=== PATIENT | female | born 1960 | race Caucasian/White ===

== ENCOUNTER 2019-01-09 12:08 | Emergency (ER) | payer OTHER ==
[~2019-01-09] VITALS: Ht 175.3 cm; Wt 94.3 kg
[2019-01-09 12:28] VITALS: BP 150/90
== END 2019-01-09 12:30 | disposition home or self-care (01) ==
LOC: ER 12:08
DX: M54.2 Cervicalgia (principal); V43.52XA Car driver injured in collision with other type car in traffic accident, initial encounter; Y92.488 Other paved roadways as the place of occurrence of the external cause
CPT/HCPCS: 99282

== ENCOUNTER → 2019-11-11 | Day surgery (SDC) | payer OTHER ==
[~2019-11-11] MED LIST: ACETAMINOPHEN-1 EAC4 PO; ALBUTEROL0.63 MG/3 INH; ARMOUR THYROID60 MG PO; B&O 60MG R/S 60 MG SUPP PR ONE; CIPRO500 MG PO; CITRACAL + D31 EACH PO; DEXAMETHASONE SOD PHOS INJ 4 MG/ML VIAL ONE; ETODOLAC500 MG PO; FENTANYL CITRATE/PF 100MCG/2 ML INJ ONE; FLOMAX0.4 MG PO; GLUCOSAMINE CH1 EAC2 PO; IOPAMIDOL 300MG/ML 50ML INFUS..BTL IV ONE; LEVOFLOXACIN 500MG/D5W 100ML 100 ML IV ONE; LIDOCAINE HCL 2% LOCAL INJ 5 ML SDV VIAL INJ ONE; MIDAZOLAM HCL 2 MG/2 ML VIAL ONE; OMEGA-31000 MG PO; ONDANSETRON HCL INJ 2MG/ML 2ML 2 MG/ML VIAL ONE; PROPOFOL IV EMULSION 10 MG/ML 20 ML VIAL ONE; ROBAXIN-750750 MG PO; SEVOFLURANE INHAL SOLN 250 ML PEN BTL ONE; URIBEL CAPSULE1 EACH PO; VITAMIN D32000 UNI2 PO; XOPENEX CO1.25 MG/0. INH; XYZAL5 MG PO
[2019-11-11 15:00] VITALS: BP 153/85
--- NOTE | 2019-12-24 02:46 | Operative Report ---
DATE OF PROCEDURE: 11/11/2019 SURGEON: Braulio Baker MD PREOPERATIVE DIAGNOSIS: Urinary tract infections. POSTOPERATIVE DIAGNOSES: 1. Urinary tract infections. 2. Grade 2 cystocele. 3. Atrophic (senile) vaginitis. OPERATION PERFORMED: 1. Cystourethroscopy with bilateral ureteral catheterization and retrograde ureteropyelography. 2. Interpretation of retrograde ureteropyelography. 3. Supervision of fluoroscopy, no radiologist present. 4. Pelvic examination under anesthesia. ANESTHESIA: General. COMPLICATIONS: None. CLINICAL SUMMARY: Lissette Berry is a 59-year-old woman, who underwent previous mid urethral sling. She has had lower tract symptomatology and urine tract infection, she is brought for evaluation. She is aware of the risks of bleeding, infection, injury to adjacent structures, need for additional procedures, and elected to proceed. OPERATIVE PROCEDURE IN DETAIL: Informed consent was verified, Lissette Berry was properly identified, taken to the operating room, placed on the cystoscopy table in supine position. Anesthesia was uneventfully begun. The patient was then carefully gently repositioned in the dorsal lithotomy position with all pressure points well padded. Her genitalia were prepared and draped in the usual sterile fashion. The 22.5-Lithuanian cystoscope sheath with obturator in place was atraumatically inserted the patient's urethra and the bladder was drained. Panendoscopy of the bladder revealed no suspicious mucosal lesions. There was mild erythema along the posterior wall. Normally positioned, configured ureteral orifices were identified. There were grade 1-2 trabeculations. The bladder neck appeared to be elevated and mid urethra seems to be compressed extrinsically. An 8-Lithuanian catheter was used to cannulate each ureter and retrograde ureteropyelography was performed. Interpretation of retrograde ureteropyelography contrast was instilled in retrograde fashion bilaterally. There were no tumors, no stones, and no diverticula. Unobstructed drainage was observed bilaterally fluoroscopically. Cholecystectomy clips were noted. The patient's bladder was drained, cystoscope was withdrawn. Pelvic examination under anesthesia revealed no erosion of the mid urethral sling. There was obviously 2 type appears to be a kink due to the grade 2 cystocele causing kink at the pubovaginal sling area, which most likely contributes to the patient's obstruction. There were no obvious mucosal lesions. No abnormal palpable pelvic masses could be appreciated. The patient was then uneventfully reversed from anesthesia and taken to recovery room in stable condition. There were no complications to the procedure. She tolerated the procedure well. Plans will be to return the patient to the operating room for an excision of her sling and cystocele repair with graft and creation of a new non-constricting sling. Braulio Baker MD OH/MODL /[id number] cc: Steffen Guallpa MD
== END | disposition home or self-care (01) ==
LOC: OR 11:36
PROVIDERS: ATTEND Urology
DX: N39.0 Urinary tract infection, site not specified (principal); N81.10 Cystocele, unspecified; N95.2 Postmenopausal atrophic vaginitis; Z88.1 Allergy status to other antibiotic agents; Z88.0 Allergy status to penicillin; Z88.8 Allergy status to other drugs, medicaments and biological substances; J45.909 Unspecified asthma, uncomplicated; F41.9 Anxiety disorder, unspecified; E03.9 Hypothyroidism, unspecified; Z01.810 Encounter for preprocedural cardiovascular examination
CPT/HCPCS: 52005; 74420; 93005; C1758; J1100; J1956; J2001; J2250; J2405; J2704; J3010; Q9967

== ENCOUNTER 2019-11-17 13:00 | Inpatient (IN) | payer OTHER ==
[~2019-11-17] VITALS: Ht 175.3 cm; Wt 92.7 kg
[~2019-11-17 13:00] MED LIST changes: +ACETAMINOPHEN 1000 MG/100 ML IV ONE; -B&O 60MG R/S 60 MG SUPP PR ONE; +EPHEDRINE SULFATE INJ 50 MG/ML VIAL ONE; -FENTANYL CITRATE/PF 100MCG/2 ML INJ ONE; -IOPAMIDOL 300MG/ML 50ML INFUS..BTL IV ONE; -LEVOFLOXACIN 500MG/D5W 100ML 100 ML IV ONE; +METOCLOPRAMIDE HCL 10 MG/2ML VIAL ONE; -MIDAZOLAM HCL 2 MG/2 ML VIAL ONE
[2019-11-17] MEDS ORDERED: CLINDAMYCIN 600MG / 50ML 50 ML IV ONE (13:29)
[2019-11-17] MEDS ORDERED: MEROPENEM 1GM 100 ML IV ONE (13:30)
[2019-11-17] MEDS ORDERED: MIDAZOLAM HCL 2 MG/2 ML VIAL ONE (14:45)
[2019-11-17] MEDS ORDERED: FENTANYL CITRATE/PF 100MCG/2 ML INJ ONE (14:45)
[2019-11-17] MEDS ORDERED: IOPAMIDOL 300MG/ML 50ML INFUS..BTL IV ONE (17:03)
[2019-11-17] MEDS ORDERED: BUPIVACAINE 0.5%/EPI 30 ML SDV INJ ONE (17:03)
[2019-11-17] MEDS ORDERED: MUPIROCIN 2% OINT 22 GM TUBE ONE (17:04)
[2019-11-17] MEDS ORDERED: BACITRACIN 50,000 UNIT VIAL ONE (17:14)
[2019-11-17] MEDS ORDERED: DIPHENHYDRAMINE HCL 25 MG CAP PO PRN (17:15)
[2019-11-17] MEDS ORDERED: NALOXONE HCL INJ 0.4 MG/ML AMP IV PRN (17:15)
[2019-11-17] MEDS ORDERED: ACETAMINOPHEN 1000 MG/100 ML 100 ML IV ONE (18:06)
[2019-11-17] MEDS: MORPHINE SULFATE 1 MG/ML 30ML PCA IV PRN (18:50)
[2019-11-17] MEDS ORDERED: HYDROMORPHONE 1MG/1ML INJ ONE ×2 (19:01→19:08)
[2019-11-17 19:35] VITALS: BP 127/70
[2019-11-17] MEDS: MEROPENEM 1GM 100 ML IV SCH (20:21)
[2019-11-17] MEDS: ONDANSETRON HCL INJ 2MG/ML 2ML 2 MG/ML VIAL IV PRN (20:40)
[2019-11-17 20:44] VITALS: BP 127/70
[2019-11-17] MEDS ORDERED: MEROPENEM 1GRAM 1 GM in SODIUM CHLORIDE 0.9% 100 ML 100 ML IV SCH (21:00)
[2019-11-17] MEDS: D5.45%NS/KCL 20MEQ 1,000 ML IV SCH (21:54)
[2019-11-18] VITALS (7 sets, daily range): BP systolic 100–121; BP diastolic 50–86
[2019-11-18] MEDS: MORPHINE SULFATE 1 MG/ML 30ML PCA IV PRN (00:13)
[2019-11-18] MEDS: D5.45%NS/KCL 20MEQ 1,000 ML IV SCH ×3 (01:02→16:21)
[2019-11-18] MEDS: PROMETHAZINE 12.5MG/ NACL 0.9% 12.5 MG/50 ML BAG IV PRN ×2 (01:12→05:36)
[2019-11-18] MEDS: ONDANSETRON HCL INJ 2MG/ML 2ML 2 MG/ML VIAL IV PRN ×2 (04:34→16:20)
[2019-11-18] MEDS ORDERED: LORAZEPAM INJ 2 MG/ML VIAL IV PRN (05:00)
[2019-11-18 05:43] LABS: BASOPHILS % 0.2 % (0.0-1.0); HEMATOCRIT 37.4 % (34.2-44.1); HEMOGLOBIN 11.6 g/dL (12.0-16.0); LYMPHOCYTES # (AUTO) 0.9 (1.0-3.2); LYMPHOCYTES % 7.5 % (18.0-39.1); MEAN CORPUSCULAR HEMOGLOBIN 28.2 pg (28-32); MEAN CORPUSCULAR VOLUME 90.8 fL (81-99); MONOCYTES # (AUTO) 0.8 (0.2-0.8); MONOCYTES % 6.6 % (4.4-11.3); NEUTROPHILS # (AUTO) 10.6 (2.1-6.9); NEUTROPHILS % 85.1 % (38.7-80.0); PLATELET COUNT 225 x10e3/uL (140-360); RED BLOOD COUNT 4.12 x10e6/uL (3.6-5.1); RED CELL DISTRIBUTION WIDTH 13.2 % (11.7-14.4)
[2019-11-18 05:59] LABS: ANION GAP 12.7 mmol/L (8-16); BLOOD UREA NITROGEN 15 mg/dL (7-26); BUN/CREATININE RATIO 21 (6-25); CALCIUM 8.7 mg/dL (8.4-10.2); CARBON DIOXIDE 25 mmol/L (22-29); CHLORIDE 104 mmol/L (98-107); CREATININE, SERUM 0.71 mg/dL (0.57-1.11); EST GLOMERULAR FILTRATION RATE > 60 ML/MIN (60-); GLUCOSE 147 mg/dL (74-118); POTASSIUM 4.7 mmol/L (3.5-5.1); SODIUM 137 mmol/L (136-145)
[2019-11-18] MEDS ORDERED: PNEUMOCOCCAL VACCINE POLYVALENT 23 MCG/0.5 ML VIAL IM SCH (06:00)
[2019-11-18] MEDS: MEROPENEM 1GM 100 ML IV SCH ×2 (08:40→20:00)
[2019-11-18] MEDS: DOCUSATE SODIUM 100 MG CAP PO SCH ×2 (08:40→16:20)
[2019-11-18] MEDS: TRAMADOL HCL 50 MG TAB PO PRN ×4 (11:38→23:45)
[2019-11-18] MEDS: METHOCARBAMOL 500 MG TAB PO SCH (21:00)
[2019-11-18] MEDS ORDERED: THYROID 60 MG TAB PO SCH (21:00)
[2019-11-18] MEDS: XYZAL 5MG PO SCH (21:00)
[2019-11-18] MEDS ORDERED: METHOCARBAMOL 750 MG TAB PO SCH (21:00)
[2019-11-19] VITALS: BP 108/55
[2019-11-19] MEDS: D5.45%NS/KCL 20MEQ 1,000 ML IV SCH (03:28)
[2019-11-19] MEDS: TRAMADOL HCL 50 MG TAB PO PRN ×2 (03:45→08:58)
[2019-11-19 04:00] VITALS: BP 114/61
[2019-11-19 05:57] LABS: BASOPHILS % 0.3 % (0.0-1.0); EOSINOPHILS # (AUTO) 0.1 (0.0-0.4); EOSINOPHILS % 0.8 % (0.0-6.0); HEMATOCRIT 33.8 % (34.2-44.1); HEMOGLOBIN 10.9 g/dL (12.0-16.0); LYMPHOCYTES # (AUTO) 2.1 (1.0-3.2); LYMPHOCYTES % 28.5 % (18.0-39.1); MEAN CORPUSCULAR HEMOGLOBIN 28.5 pg (28-32); MEAN CORPUSCULAR HGB CONC 32.2 g/dL (31-35); MEAN CORPUSCULAR VOLUME 88.5 fL (81-99); MONOCYTES # (AUTO) 0.6 (0.2-0.8); MONOCYTES % 7.5 % (4.4-11.3); NEUTROPHILS # (AUTO) 4.7 (2.1-6.9); NEUTROPHILS % 62.6 % (38.7-80.0); PLATELET COUNT 199 x10e3/uL (140-360); RED BLOOD COUNT 3.82 x10e6/uL (3.6-5.1); RED CELL DISTRIBUTION WIDTH 13.4 % (11.7-14.4)
[2019-11-19 06:19] LABS: ANION GAP 11.1 mmol/L (8-16); BLOOD UREA NITROGEN 8 mg/dL (7-26); BUN/CREATININE RATIO 12 (6-25); CALCIUM 8.2 mg/dL (8.4-10.2); CARBON DIOXIDE 28 mmol/L (22-29); CHLORIDE 102 mmol/L (98-107); CREATININE, SERUM 0.69 mg/dL (0.57-1.11); EST GLOMERULAR FILTRATION RATE > 60 ML/MIN (60-); GLUCOSE 108 mg/dL (74-118); POTASSIUM 4.1 mmol/L (3.5-5.1); SODIUM 137 mmol/L (136-145)
--- NOTE | 2019-11-19 07:37 | Progress Note ---
DATE: 11/19/2019 SUBJECTIVE: The patient is a 59-year-old female, who came in and had a cystocele repair. The patient has been seen by Dr. Braulio Baker. No complaints noted today. The patient underwent surgery on 11/17/2019. Currently, no complaints. No chest pain or shortness of breath. The patient has arthritis pain, however, otherwise no complaints. PHYSICAL EXAMINATION: VITAL SIGNS: Temperature is 96.9, pulse of 61, respirations 17, blood pressure is 108/55, pulse oximetry of 96% on room air. HEENT: Normocephalic and atraumatic. Pupils are reactive to light and accommodation. CVS: S1 and S2 normal. Regular rate and rhythm. ABDOMEN: Nontender, nondistended. Bowel sounds are positive. EXTREMITIES: No clubbing, no cyanosis, no edema. HONORIO hose is in place. LABORATORY VALUES: From today white count is 7.43, hemoglobin of 10.9, hematocrit of 33.8. No left shift present. Chemistry shows sodium 137, potassium 4.1, BUN of 18, creatinine 0.69, calcium is 8.2. IMAGING STUDIES: Except for retrograde. ASSESSMENT: 1. Ms. Lissette Berry is status post cystocele, retrograde pyelogram. 2. History of hypothyroidism. 3. History of chronic low back pain and history of anxiety. PLAN: Continue current management. The patient can be discharged if okay with Dr. Baker. Further recommendation per clinical course. She is to continue all home medicines and follow up with Dr. Guallpa and Dr. Baker on a week's time. MD AL Chi/HIMAL /[id number]
[2019-11-19 08:00] VITALS: BP 114/61
[2019-11-19 08:10] VITALS: BP 110/53
[2019-11-19 08:43] VITALS: BP 110/53
[2019-11-19] MEDS: DOCUSATE SODIUM 100 MG CAP PO SCH (08:49)
[2019-11-19] MEDS: MEROPENEM 1GM 100 ML IV SCH (08:49)
[2019-11-19] MEDS: METHOCARBAMOL 500 MG TAB PO SCH (08:50)
[2019-11-19] MEDS: XYZAL 5MG PO SCH (08:50)
[2019-11-19 11:39] VITALS: BP 99/55
--- NOTE | 2019-11-28 09:10 | Discharge Summary ---
DISCHARGE DIAGNOSIS: Status post cystocele repair with Dr. Baker. HISTORY OF PRESENT ILLNESS AND HOSPITAL COURSE: See hospital chart for full details. The patient is a lady, who presented with abdominal pain, was found to have a large cystocele with Dr. Baker removed the old sling and repaired her cystocele. Postoperatively, she did well. She was able to be discontinued on the AERIAL LINEMAN and Cade. At the time of discharge, she was doing well. She is to follow up in [address] Baker and to call sooner with any issues. Please see hospital chart for full details. MD ALESSANDRA Mendez/JEANIE /[id number]
--- NOTE | 2019-12-30 03:25 | Operative Report ---
DATE OF PROCEDURE: 11/17/2019 SURGEON: Braulio Baker MD PREOPERATIVE DIAGNOSES: 1. Bladder neck obstruction. 2. Stress type urinary incontinence. 3. Grade 2 cystocele four. 4. Urinary tract infections. 5. Gross hematuria. POSTOPERATIVE DIAGNOSES: 1. Bladder neck obstruction. 2. Stress type urinary incontinence. 3. Grade 2 cystocele four. 4. Urinary tract infections. 5. Gross hematuria. OPERATIONS PERFORMED: 1. Excision of obstructing mid urethral sling (separate procedure performed for the diagnosis of sling). 2. Urethrolysis. 3. Repair of cystocele. 4. Utilization of graft and cystocele repair. 5. Pubovaginal sling utilizing homograft. 6. Cystourethroscopy with bilateral ureteral catheterization and retrograde ureteropyelography (separate procedure performed for the urinary tract infections and hematuria). 7. Interpretation of retrograde ureteropyelography. 8. Supervision of fluoroscopy, no radiologist present. ANESTHESIA: General. COMPLICATIONS: None. CLINICAL SUMMARY: Lissette Berry is a complicated 59-year-old woman who has had a previous mid urethral sling placed by another physician. This is causing obstruction. The patient desires excision and revision. She is aware of the risks of bleeding, infection, injury to adjacent structures, need for additional procedures, persistent incontinence, chronic pain in usual attendant risks of surgery and anesthesia, which she was encouraged to discuss with the anesthesiologist preoperatively. She understood all these risks and elected to proceed. OPERATIVE PROCEDURE IN DETAIL: Informed consent was verified. Lissette Berry was properly identified taken to the operative room and placed on the operating table in supine position. Anesthesia was uneventfully begun. The patient was then carefully gently repositioned in the dorsal lithotomy position with all pressure points well padded. Her abdomen, genitalia, and perineum were shaved, prepared, and draped in usual sterile fashion. Labial stay sutures were utilized as well as vaginal speculum. Marcaine with epinephrine was utilized to infiltrate submucosally in the midline and in the anterior vaginal wall. A midline incision was then made, bilateral vaginal wall flaps were carefully developed. We identified the pubovaginal sling. It appeared to have migrated distally and was not in good position in the mid urethra. The sling was somewhat adherent. The other aspect of the sling was that appeared to have rolled onto itself and instead of being any flat sling it was really rolled as a straw. We dissected it loose from the urethra, avoiding injuring the urethra. We then tracked it as laterally as possible and then divided it. All sling material could not be removed as it was buried laterally. Copious irrigation was performed. We then completed the anterior vaginal wall dissection created vaginal wall flaps that extended the entire cephalad extent of the anterior vaginal wall. We then pierced the endopelvic fascia as laterally as possible to avoid injuring the periurethral neurovascular complexes. Once this was accomplished heavy Vicryl suture was utilized in an interrupted fashion to perform plicating type of cystocele repair from the cephalad most extent of the anterior vaginal dissection to the bladder neck. This resulted in complete reduction of the cystocele. The patient's bladder was drained with a Cade catheter. We then took a piece of fascia manuel cut it to shape and placed a heavy PDS suture in a helical fashion through each end. We rehydrated this fascia manuel in antibiotic irrigant. We then utilized the [facility] needle system to hug the posterior surface of the left pubis and pierced the needle through the anterior abdominal wall dragging along with that PDS suture strands care. An identical maneuver was performed on the right-hand side. We then utilized chromic suture to secure the graft to the cephalad most extent of the vaginal pena and ensure that it supports the cystocele repair. We then extended the graft to the distal most portion of the urethra and secured it there with a chromic suture thus fashioning a pubovaginal sling. The lateral [place] suture passer was then utilized to take one strand of each PDS suture and tunneled it subcutaneously suprapubically to join its contralateral counterpart. The abdominal stab wounds were approximated with the interrupted subcuticular Monocryl and following copious antibiotic irrigation the vaginal wall was approximated with heavy Vicryl suture in running fashion. The Cade catheter was removed. Panendoscopy of the urinary bladder revealed no suspicious mucosal lesions. No tumors, no stones, and no diverticula. Some hyperemia of the urethra was noted. There were trabeculations noted within the bladder. An 8-[place] Zealander catheter was used to cannulate each ureter and retrograde ureteral pyelograms were performed. Interpretation of retrograde ureteropyelography contrast was instilled in retrograde fashion bilaterally. There were no tumors, no stones, and no diverticula. Unobstructed drainage was observed bilaterally fluoroscopically. The patient's bladder was drained with Cade catheter and the vaginal packing was placed. Labial stay sutures were removed. Sterile dressings were applied suprapubically. The patient was uneventfully reversed from anesthesia, taken to recovery room in stable condition. There were no complications to the procedure. She tolerated the procedure well. We will proceed with routine postoperative care and ongoing urological followup. Sponge, needle,and instrument counts were correct at the end of the case x2. Braulio Baker MD OH/MODL /[id number] cc: MD Steffen Orellana MD
== END 2019-11-19 13:32 | disposition home or self-care (01) | DRG 748 ==
LOC: OR 13:00 → MED/SURG 18:00
PROVIDERS: ADMIT Internal Medicine; ATTEND Internal Medicine
PROC: 0TPD0JZ Removal of Synthetic Substitute from Urethra, Open Approach (ICD-10-PCS; 2019-11-17)
PROC: 0T788ZZ Dilation of Bilateral Ureters, Via Natural or Artificial Opening Endoscopic (ICD-10-PCS; 2019-11-17)
PROC: BT141ZZ Fluoroscopy of Kidneys, Ureters and Bladder using Low Osmolar Contrast (ICD-10-PCS; 2019-11-17)
PROC: 0JUC3JZ Supplement of Pelvic Region Subcutaneous Tissue and Fascia with Synthetic Substitute, Percutaneous Approach (ICD-10-PCS; principal; 2019-11-17 15:00)
PROC: 0TSD4ZZ Reposition Urethra, Percutaneous Endoscopic Approach (ICD-10-PCS; 2019-11-17 15:00)
DX: N81.10 Cystocele, unspecified (principal); N39.0 Urinary tract infection, site not specified; E03.9 Hypothyroidism, unspecified; N32.0 Bladder-neck obstruction; N39.3 Stress incontinence (female) (male); R31.0 Gross hematuria
CPT/HCPCS: 36415; 74420; 80048; 84132; 85025; 88304; 90732; C1752; C1758; J1100; J1170; J2001; J2250; J2270; J2405; J2550; J2765; J3010

== ENCOUNTER 2024-06-16 12:56 | Outpatient (RCR) | payer OTHER ==
[~2024-06-16 12:56] MED LIST changes: -ACETAMINOPHEN 1000 MG/100 ML IV ONE; -DEXAMETHASONE SOD PHOS INJ 4 MG/ML VIAL ONE; -EPHEDRINE SULFATE INJ 50 MG/ML VIAL ONE; -LIDOCAINE HCL 2% LOCAL INJ 5 ML SDV VIAL INJ ONE; -METOCLOPRAMIDE HCL 10 MG/2ML VIAL ONE; -ONDANSETRON HCL INJ 2MG/ML 2ML 2 MG/ML VIAL ONE; -PROPOFOL IV EMULSION 10 MG/ML 20 ML VIAL ONE; -SEVOFLURANE INHAL SOLN 250 ML PEN BTL ONE
== END 2024-06-18 ==
LOC: OT 12:56
PROVIDERS: ATTEND Orthopaedic Surgery
DX: S46.091D Other injury of muscle(s) and tendon(s) of the rotator cuff of right shoulder, subsequent encounter (principal); M25.511 Pain in right shoulder; M25.611 Stiffness of right shoulder, not elsewhere classified; R53.1 Weakness

== ENCOUNTER 2024-07-16 11:00 | Outpatient (RCR) | payer OTHER | END 2024-07-19 | LOC: OT 11:00 | PROVIDERS: ATTEND Orthopaedic Surgery | DX: S46.091D Other injury of muscle(s) and tendon(s) of the rotator cuff of right shoulder, subsequent encounter (principal); M25.511 Pain in right shoulder; M25.611 Stiffness of right shoulder, not elsewhere classified; R53.1 Weakness ==

== ENCOUNTER → 2024-08-18 | Outpatient (RCR) | payer OTHER | LOC: OT 07-22 08:29 | PROVIDERS: ATTEND Orthopaedic Surgery | DX: M25.511 Pain in right shoulder (principal); S46.091D Other injury of muscle(s) and tendon(s) of the rotator cuff of right shoulder, subsequent encounter; M25.611 Stiffness of right shoulder, not elsewhere classified; R53.1 Weakness ==

== ENCOUNTER 2024-09-09 11:00 | Outpatient (RCR) | payer OTHER | END 2024-09-18 | LOC: OT 11:00 | PROVIDERS: ATTEND Orthopaedic Surgery | DX: S46.091D Other injury of muscle(s) and tendon(s) of the rotator cuff of right shoulder, subsequent encounter (principal); M25.511 Pain in right shoulder; M25.611 Stiffness of right shoulder, not elsewhere classified; R53.1 Weakness ==